=== PATIENT | male | born 1960 | race Caucasian/White ===

== ENCOUNTER → 2024-04-10 | Outpatient (REF) | payer BC ==
[2024-04-10 14:22] LABS: BASO # 0.1 10^3/uL (0.0-0.2); BASO % 0.8 % (0.0-1.0); EOS # 0.1 10^3/uL (0.0-0.5); EOS % 1.4 % (0.0-3.0); HEMATOCRIT 44.2 % (42.0-52.0); HEMOGLOBIN 14.9 g/dl (13.5-17.5); LYMPH % 31.2 % (24.0-44.0); MEAN CORPUSCULAR HEMOGLOBIN 33.2 pg (27.0-33.0); MEAN CORPUSCULAR HGB CONC 33.7 g/dl (32.0-36.5); MEAN CORPUSCULAR VOLUME 98.4 fl (80.0-96.0); MONO # 0.7 10^3/uL (0.0-0.8); MONO % 11.8 % (2.0-8.0); NEUTROPHILS # 3.4 10^3/uL (1.5-8.5); NEUTROPHILS % 54.6 % (36.0-66.0); PLATELET COUNT, AUTOMATED 300 10^3/uL (150-450); RED BLOOD COUNT 4.49 10^6/uL (4.30-6.10); WHITE BLOOD COUNT 6.3 10^3/uL (4.0-10.0)
[2024-04-10 14:49] LABS: ALBUMIN 4.2 G/DL (3.2-5.2); ALKALINE PHOSPHATASE 83 U/L (40-129); ALT/SGPT 32 U/L (7.0-40); AST/SGOT 48 U/L (<34); BILIRUBIN,TOTAL 0.9 MG/DL (0.3-1.2); BLOOD UREA NITROGEN 9 MG/DL (9-23); CALCIUM LEVEL 9.1 MG/DL (8.3-10.6); CARBON DIOXIDE LEVEL 28 MMOL/L (20-31); CHLORIDE LEVEL 99 MMOL/L (98-107); CHOLESTEROL LEVEL 209 MG/DL (<200); CHOLESTEROL RISK RATIO 1.74 (<5); CREATININE FOR GFR 0.58 MG/DL (0.70-1.30); FOLATE 15.4 NG/ML (>5.4); GLOMERULAR FILTRATION RATE > 60.0 (>49); GLUCOSE, FASTING 72 MG/DL (74-106); HDL CHOLESTEROL 119.6 MG/DL (>40); HEMOGLOBIN A1c 4.3 % (4.0-6.0); LDL CHOLESTEROL 79.2 MG/DL (<100); MAGNESIUM LEVEL 1.6 MG/DL (1.8-2.4); NON-HDL-C 89.4 MG/DL; POTASSIUM SERUM 4.6 MMOL/L (3.5-5.1); PSA SCREENING 4.81 NG/ML (< 4.00); SODIUM LEVEL 139 MMOL/L (136-145); TRIGLYCERIDES LEVEL 51 MG/DL (<150); VITAMIN B12 LEVEL 1079 PG/ML (211-911)
== END ==
LOC: M LAB REF 13:23
PROVIDERS: ATTEND Nurse Practitioner Family
DX: E66.3 Overweight (principal); F10.90 Alcohol use, unspecified, uncomplicated; R53.83 Other fatigue; N40.1 Benign prostatic hyperplasia with lower urinary tract symptoms; Z11.9 Encounter for screening for infectious and parasitic diseases, unspecified
CPT/HCPCS: 80053; 80061; 82607; 82746; 83036; 83735; 84443; 85025; 86780; G0103

== ENCOUNTER → 2024-05-08 | Outpatient (CLI) | payer BC ==
[~2024-05-08] MED LIST: PROHANCE 279.3MG/ML 15ML VIAL ONE
== END ==
LOC: M PLAIMG 07:21
PROVIDERS: ATTEND Nurse Practitioner Family
DX: R97.20 Elevated prostate specific antigen [PSA] (principal)
CPT/HCPCS: 72197; A9576

== ENCOUNTER → 2024-06-13 | Outpatient (REF) | payer BC | LOC: M SMT 12:36 | PROVIDERS: ATTEND Urology | DX: C61 Malignant neoplasm of prostate (principal) ==

== ENCOUNTER → 2024-10-31 | Outpatient (CLI) | payer BC ==
[2024-10-31 09:57] LABS: PLATELET COUNT, AUTOMATED 240 10^3/uL (150-450)
[2024-10-31 10:01] LABS: ALT/SGPT 28 U/L (7.0-40); AST/SGOT 41 U/L (<34); CALCIUM LEVEL 9.4 MG/DL (8.3-10.6); CARBON DIOXIDE LEVEL 32 MMOL/L (20-31); CHLORIDE LEVEL 99 MMOL/L (98-107); CREATININE FOR GFR 0.64 MG/DL (0.70-1.30); GLOMERULAR FILTRATION RATE > 90.0 (>49); POTASSIUM SERUM 4.8 MMOL/L (3.5-5.1); SODIUM LEVEL 139 MMOL/L (136-145)
[2024-10-31 10:09] LABS: INR 0.98
== END ==
LOC: M PLAIMG 08:22
PROVIDERS: ATTEND Urology
DX: C61 Malignant neoplasm of prostate (principal)

== ENCOUNTER → 2024-11-03 | Outpatient (CLI) | payer BC | LOC: M EKG 09:48 | PROVIDERS: ATTEND Urology | DX: C61 Malignant neoplasm of prostate (principal) ==

== ENCOUNTER → 2024-11-19 | Outpatient (REF) | payer BC ==
[~2024-11-19] MED LIST changes: +ATOR1TAB19 PO; +CYCL5TAB4 PO; +GABA-1171 PO; +GABA-1172 PO; +HYDR-3716 PO; +LOSA25TA13 PO; +MAGN400T2 PO; +MELO7.5T35 PO; +OMEP-173 PO; -PROHANCE 279.3MG/ML 15ML VIAL ONE; +TAMS1CAP17 PO
== END ==
LOC: M LAB REF 20:20
PROVIDERS: ATTEND Nurse Practitioner Family
DX: Z01.818 Encounter for other preprocedural examination (principal)

== ENCOUNTER 2024-11-27 12:26 | Day surgery (SDC) | payer BC ==
[~2024-11-27] VITALS: Ht 160 cm; Wt 70.3 kg
[2024-11-27] MEDS ORDERED: ONDANSETRON 4MG 2ML VIAL IV PRN (13:30)
[2024-11-27] MEDS ORDERED: ACETAMINOPHEN 325 MG TAB PO PRN (13:30)
[2024-11-27] MEDS ORDERED: ROCURONIUM BROMIDE 50MG/5ML VIAL As Ordered ONE (14:12)
[2024-11-27] MEDS ORDERED: SUGAMMADEX SODIUM 500 MG/5 ML VIAL As Ordered ONE (14:12)
[2024-11-27] MEDS ORDERED: LIDOCAINE 2% 100 MG/5 ML SDV (FOR ANES.) As Ordered ONE (14:12)
[2024-11-27] MEDS ORDERED: MIDAZOLAM INJ 2 MG/2 ML VIAL As Ordered ONE (14:13)
[2024-11-27] MEDS ORDERED: GLYCOPYRROLATE INJ 0.2 MG/ML 2 ML VIAL As Ordered ONE (14:16)
[2024-11-27] MEDS ORDERED: LIDOCAINE 1% SDV 30 ML VIAL As Ordered ONE (14:16)
[2024-11-27] MEDS ORDERED: KETOROLAC 30 MG/ML 1 ML VIAL As Ordered ONE (14:17)
[2024-11-27] MEDS ORDERED: dexAMETHasone 4 MG/ML 1 ML VIAL As Ordered ONE (14:17)
[2024-11-27] MEDS ORDERED: ONDANSETRON 4MG 2ML VIAL As Ordered ONE (14:17)
[2024-11-27] MEDS ORDERED: ACETAMINOPHEN 1000MG/100ML IV BAG As Ordered ONE (14:25)
[2024-11-27] MEDS: ceFAZolin SOD 2 GM IV ONCE IV ONE (14:50)
[2024-11-27] MEDS: HEPARIN SOD 5000 UNITS/ML 1 ML VIAL/SYRINGE As Ordered ONE (14:50)
[2024-11-27] MEDS ORDERED: KETAMINE HCL 200 MG/20 ML VIAL As Ordered ONE (14:54)
[2024-11-27] MEDS ORDERED: HYDROmorphone HCL 2 MG/ML 1 ML VIAL As Ordered ONE (15:36)
[2024-11-27] MEDS: HYDROMORPHONE HCL 0.5 MG/0.5 ML SYRINGE IV PRN (19:43)
[2024-11-27] MEDS: KETOROLAC 30 MG/ML 1 ML VIAL IV STA (20:06)
[2024-11-27 20:13] LABS: PLATELET COUNT, AUTOMATED 265 10^3/uL (150-450)
[2024-11-27] MEDS: ONDANSETRON 4MG 2ML VIAL IV PRN (20:24)
[2024-11-27 20:31] LABS: CALCIUM LEVEL 8.6 MG/DL (8.3-10.6); CARBON DIOXIDE LEVEL 24 MMOL/L (20-31); CHLORIDE LEVEL 101 MMOL/L (98-107); CREATININE FOR GFR 0.70 MG/DL (0.70-1.30); GLOMERULAR FILTRATION RATE > 90.0 (>49); POTASSIUM SERUM 4.3 MMOL/L (3.5-5.1); SODIUM LEVEL 136 MMOL/L (136-145)
[2024-11-27] MEDS: DOCUSATE SODIUM 100 MG CAPSULE PO SCH (21:00)
[2024-11-27 21:20] VITALS: BP 127/82; TEMP 97.3; O2SAT 93
[2024-11-27 21:50] VITALS: BP 129/80; TEMP 98.1; O2SAT 95
[2024-11-27] MEDS: NS (Normal Saline) 0.9% 1,000 ML IV SCH (21:50)
[2024-11-27] MEDS: LR 1,000 ML IV SCH (21:51)
[2024-11-27] MEDS ORDERED: PILL CUTTER 1 EACH XX ONE (22:11)
[2024-11-27] MEDS: ATORVASTATIN 10 MG TAB PO SCH (22:12)
[2024-11-27] MEDS: MAGNESIUM OXIDE 400 MG TAB PO SCH (22:13)
[2024-11-27 22:14] VITALS: BP 129/80
[2024-11-27] MEDS: LOSARTAN 25 MG TAB PO SCH (22:14)
[2024-11-27] MEDS: GABAPENTIN 300 MG CAP PO SCH (22:14)
[2024-11-27] MEDS: ceFAZolin SOD 1 GM in DEXTROSE 5% (D5W) ADV/MINI-BAG 50 ML IV SCH (22:14)
[2024-11-27] MEDS: HEPARIN SOD 5000 UNITS/ML 1 ML VIAL/SYRINGE SC SCH (22:14)
[2024-11-27 22:20] VITALS: BP 131/78; TEMP 97.5; O2SAT 92
[2024-11-27] MEDS: PERCOCET 5MG/325MG TAB PO PRN (22:34)
[2024-11-27 23:20] VITALS: BP 127/79; TEMP 97.5; O2SAT 92
[2024-11-28 00:35] VITALS: BP 124/79; TEMP 97.5; O2SAT 95
[2024-11-28 01:29] VITALS: BP 126/66; TEMP 97.5; O2SAT 95
[2024-11-28 02:31] VITALS: BP_SYST 126; BP_DIAS 78; BP_DIAS 79; TEMP 97.5; O2SAT 94
[2024-11-28 06:20] VITALS: BP 126/79; TEMP 97.7; O2SAT 94
[2024-11-28 07:44] LABS: PLATELET COUNT, AUTOMATED 227 10^3/uL (150-450)
[2024-11-28 08:06] LABS: CALCIUM LEVEL 8.1 MG/DL (8.3-10.6); CARBON DIOXIDE LEVEL 30 MMOL/L (20-31); CHLORIDE LEVEL 99 MMOL/L (98-107); CREATININE FOR GFR 0.67 MG/DL (0.70-1.30); GLOMERULAR FILTRATION RATE > 90.0 (>49); POTASSIUM SERUM 4.1 MMOL/L (3.5-5.1); SODIUM LEVEL 134 MMOL/L (136-145)
[2024-11-28 08:20] VITALS: BP 121/67; TEMP 97.7; O2SAT 95
[2024-11-28] MEDS ORDERED: CIPR-249 PO (08:51)
[2024-11-28] MEDS ORDERED: COLA100C5 PO (08:51)
[2024-11-28] MEDS: OMEPRAZOLE 20MG CAP PO SCH (08:59)
[2024-11-28] MEDS: PERCOCET 5MG/325MG TAB PO PRN (08:59)
[2024-11-28] MEDS: FLUZONE VACCINE TRIVALENT PF(25-26) 0.5ML SYRINGE IM.IMMUN ONE (12:00)
[2024-11-28 12:08] VITALS: BP 131/72; TEMP 97.5; O2SAT 95
== END 2024-11-28 14:20 | disposition home or self-care (01) ==
LOC: M SDC 12:26 → M MSPAV 21:15 → M SDC 11-28 14:20
PROVIDERS: ATTEND Urology
DX: C61 Malignant neoplasm of prostate (principal); I10 Essential (primary) hypertension; E78.5 Hyperlipidemia, unspecified; K21.9 Gastro-esophageal reflux disease without esophagitis; Z79.899 Other long term (current) drug therapy; Z87.891 Personal history of nicotine dependence
CPT/HCPCS: 36415; 38571; 55866; 80048; 85027; 86850; 86900; 86901; 88305; 88309; 96365; 96366; 96372; J0131; J0665; J0688; J0690; J1100; J1171; J1596; J1885; J2250; J2405; J3010; S2900

== ENCOUNTER → 2024-12-26 | Outpatient (CLI) | payer BC ==
[~2024-12-26] MED LIST changes: +CIPR-249 PO; +COLA100C5 PO
== END ==
LOC: M PLALAB 09:31
PROVIDERS: ATTEND Nurse Practitioner Family
DX: C61 Malignant neoplasm of prostate (principal)

== ENCOUNTER → 2025-01-28 | Outpatient (CLI) | payer BC ==
[~2025-01-28] MED LIST changes: +BICA50TA4 PO
== END ==
LOC: M ONCR 10:42
PROVIDERS: ATTEND General Practice
DX: C61 Malignant neoplasm of prostate (principal); C79.11 Secondary malignant neoplasm of bladder; Z90.79 Acquired absence of other genital organ(s); N39.3 Stress incontinence (female) (male); Z79.1 Long term (current) use of non-steroidal anti-inflammatories (NSAID); Z79.899 Other long term (current) drug therapy

== ENCOUNTER → 2025-02-20 | Outpatient (CLI) | payer BC, MEDICARE ==
[2025-02-20] MEDS: LEUPROLIDE 45 MG SYRINGE KIT IM SCH (15:13)
== END ==
LOC: M ONCR 14:47
PROVIDERS: ATTEND General Practice
DX: C61 Malignant neoplasm of prostate (principal); R32 Unspecified urinary incontinence
CPT/HCPCS: 96402; G0463; J9217